=== PATIENT | female | born 1930 | race Caucasian/White ===

== ENCOUNTER 2017-12-19 02:58 | Inpatient (IN) | payer OTHER, MEDICARE ==
[~2017-12-19] VITALS: Ht 162.6 cm; Wt 54.4 kg
[~2017-12-19 02:58] MED LIST: AMIODARONE HCL100 M1 PO; CENTRUM SILVER1 EAC3 PO; CEPHALEXIN500 M3 PO; COREG3.125 MG PO; GABAPENTIN100 M2 PO; IMODIUM A-D2 M2 PO; LISINOPRIL20 M1 PO; MYRBETRIQ25 M1 PO; PROBIOTIC1 EACH PO; VITAMIN B-122500 MCG PO; ZENPEP DR 25,01 EACH PO
[2017-12-19] MEDS ORDERED: LEVOTHYROXINE50 MCG PO (08:08)
--- NOTE | 2017-12-19 10:27 | Patient Discharge Instructions ---
Discharge Instructions General Discharge Information You were seen/treated for: Primary right hip osteoarthritis You had these procedures: Right total hip arthroplasty Watch for these problems: Increasing pain despite the use of pain medication Increasing redness, warmth or swelling Drainage of any type from incision Inability to bear weight on operative leg Persistent nausea and vomiting Fever greater than 101.5 degrees No bath, but you may shower: Yes Other wound care: Please keep wound clean and dry. No ointments or lotions of any type on or near incision at any time. No exceptions. Your dressing will be changed by your nurse on the second day after your surgery. Daily dry dressing changes are recommended each day thereafter. Do not soak your wound in a bath at any time until otherwise indicated by your surgeon. You may shower, please dry wound immediately after shower with a clean towel Special Instructions: Aspirin: You are taking this medication to help prevent blood clot formation. Please take with food to protect your stomach lining. Please take as directed. Constipation: Pain medication can cause constipation. Dr. Covarrubias has recommended that you take Colace and miralax each day. You may discontinue this medication if you develop loose stool or diarrhea. If you wish to continue this medication, it is available over the counter. If you are unable to move your bowels after several days, if you are unable to pass gas and are developing bloating, nausea, or vomiting as a result, please contact your doctor. Diet Continue normal diet: Yes Activity Full Activity/No Limits: No Activity Self Limited: Yes Acute Coronary Syndrome Inclusion Criteria At DC or during hospital stay patient has or had the following: ACS DIAGNOSIS No Discharge Core Measures Meds if any: Prescribed or Continued at Discharge Meds if any: NOT Prescribed or Continued at Discharge Congestive Heart Failure Inclusion Criteria At DC or during hospital stay patient has or had the following: CHF DIAGNOSIS No Discharge Core Measures Meds if any: Prescribed or Continued at Discharge Meds if any: NOT Prescribed or Continued at Discharge Cerebrovascular accident Inclusion Criteria At DC or during hospital stay patient has or had the following: CVA/TIA Diagnosis No Discharge Core Measures Meds if any: Prescribed or Continued at Discharge Meds if any: NOT Prescribed or Continued at Discharge Venous thromboembolism Inclusion Criteria VTE Diagnosis No VTE Type NONE VTE Confirmed by (Test) NONE Discharge Core Measures - Per Current guidelines, there needs to be overlap - treatment for the first 5 days of Warfarin therapy. - If discharged on Warfarin prior to 5 days of - overlap therapy, the patient will need to be - assessed for post discharge needs including - *Post discharge parental anticoagulation - *Warfarin and/or parental anticoagulation education - *Follow up date to check INR post discharge At least 5 days overlap therapy as Inpatient No Meds if any: Prescribed or Continued at Discharge Note: Overlap Therapy is Warfarin and Anticoagulant Meds if any: NOT Prescribed or Continued at Discharge
--- NOTE | 2017-12-19 10:29 | Admission Core Measures ---
Acute Coronary Syndrome (CM) ACS Core Measures Acute Coronary Syndrome Diagnosis No Congestive Heart Failure (NEW) CHF Core Measures Congestive Heart Failure Diagnosis No Cerebrovascular Accident (NEW) CVA Core Measures CVA/TIA Diagnosis No Venous Thromboembolism VTE Core Laisha (View Protocol) VTE Risk Factors Surgery No Mechanical VTE Prophylaxis d/t N/A MechProphylax Ordered No VTE Pharm Prophylaxis d/t NA PharmProphylax ordered Problem List As ranked by this Provider includes Assessment & Plan 1. S/P total hip arthroplasty HOME MEDS Home Med List Amiodarone HCl 100 MG TABLET 1 TAB PO DAILY HEART (Reported) Amiodarone HCl 100 MG TABLET 0.5 TAB PO PRN HEART (Reported) Carvedilol (Coreg) 3.125 MG TABLET 1 TAB PO DAILY HEART/BP (Reported) Cyanocobalamin (Vitamin B-12) (Vitamin B-12) 2,500 MCG TAB.SUBL 1 TAB PO DAILY SUPPLEMENT (Reported) Gabapentin 100 MG CAPSULE 1 CAP PO DAILY NERVE PAIN (Reported) Lactobacillus Acidophilus (Probiotic) (Unknown Strength) CAPSULE (Unknown Dose ) PO DAILY PROBIOTIC (Reported) Levothyroxine Sodium 50 MCG TABLET 1 TAB PO DAILY hypothyroidism (Reported) Lisinopril 20 MG TABLET 1 TAB PO DAILY BP (Reported) Loperamide HCl (Imodium A-D) 2 MG CAPSULE 1 CAP PO PRN GI (Reported) Mirabegron (Myrbetriq) 25 MG TAB.ER.24H 1 TAB PO DAILY BLADDER (Reported) Multivit-Min/FA/Lycopen/Lutein (Centrum Silver Tablet) 0.4 MG-300 MCG-250 MCG TABLET 1 TAB PO DAILY SUPPLEMENT (Reported)
--- NOTE | 2017-12-19 10:31 | Surg Short-stay <48hrs Dis Sum ---
Visit Information Visit Dates Admission Date: 12/19/17 Discharge Date: 12/20/17 Surgical Short Stay DC Summary Admission Diagnosis: Primary right hip osteoarthritis Final Diagnosis: Primary right hip osteoarthritis Procedure(s): Right total hip arthroplasty Summary/Significant Findings: Patient was admitted to the hospital for an elective total joint replacement. The procedure was tolerated well and patient was transferred to a general surgical floor. Diet was advanced and tolerated. The patient was evaluated and treated by physical therapy. At the time of hospital discharge, the vital signs were stable, neurovascular status was intact, and pain was controlled with the use of oral pain medications. Condition at Discharge: Stable Discharge Disposition: home health services Discharge instructions provided to patient/family: Yes Post discharge follow-up plan: Follow up with Dr. Covarrubias in 6 weeks from date of surgery. Please call office to arrange &/or confirm this appointment
--- NOTE | 2017-12-19 11:51 | RADIOLOGY REPORT ---
EXAMINATION: XR HIP, RIGHT CLINICAL INFORMATION: Status post right hip arthroplasty. COMPARISON: None TECHNIQUE: AP and frog-leg lateral views of the right hip. FINDINGS: Prosthetic components of the right total hip arthroplasty are appropriately aligned. No periprosthetic fracture. Gas from recent surgery is present in the surrounding soft tissues. IMPRESSION: Normal postoperative appearance of the right total hip prosthesis.
--- NOTE | 2017-12-19 12:05 | Operative Report ---
Operative/Inv Procedure Report Surgery Date: 12/19/17 Name of Procedure: Right total hip replacement Pre-Operative Diagnosis: Primary right hip DJD Post-Operative Diagnosis: Same Estimated Blood Loss: 250 Surgeon/Nurse Midwife/Clinical Instructor: Marci WARD,Randy Carcamo Anesthesia: block Operative/Procedure Note Note: Description of Procedure: The patient was taken to the operating room and positively identified. After induction of spinal anesthesia and administration of appropriate pre-operative antibiotics, the patient was positioned supine on the operating room table and all bony prominences were well padded. After performing a surgical timeout, the right lower extremity was prepped and draped in the usual sterile fashion. A direct anterior approach was made to the right hip. The incision was carried sharply through superficial soft tissues to the level of the fascia. Meticulous hemostasis was maintained with Bovie electocautery. The fascia over the tensor fascia john muscle was opened sharply and the interval between the TFL and the sartorius was entered bluntly taking care to stay lateral to the lateral femoral cutaneous nerve. Retractors were placed around the femoral neck and the pericapsular fat was identified. The ascending branches of the lateral femoral circumflex vessels were identified and carefully coagulated. The pericapsular fat and anterior capsule were then resected. A napkin ring osteotomy was performed and the femoral head was removed without difficulty. Attention was then turned to the acetabulum. After appropriate placement of retractors, the acetabulum was exposed. Soft tissue was cleaned from the acetabular margin and notch. Overhanging osteophytes were removed and the teardrop was exposed. The acetabulum was then sequentially reamed to accept a 54 mm Mirella Tritanium hemispherical solid shell. This was impacted into place in the appropriate position and fitted with a 36 mm Trident X3 zero degree polyethylene insert. Attention was then turned to the femur. After performing the appropriate ligament releases, the proximal femur was exposed. It was then sequentially broached to accept a size 6 Mirella Accolade 2 stem. This was trialed for leg length and stability. The trial component was removed and the final component was impacted into place. The trunnion was carefully cleaned and fit with a 36 mm, +2.5 Biolox delta ceramic femoral head. The hip was reduced and put through a full range of motion and found to be stable. The articular space was then irrigated with sterile saline. The periarticular soft tissues were infilitrated with Marcaine. The fascial layer was closed with interrupted #1 vicryl suture and the skin was re-approximated with interrupted 2 -0 vicryl. The skin was closed with a running 3-0 V-Lock suture. Steri-strips and a sterile dressing were applied. The patient was awakened and taken to the recovery room in satisfactory condition.
[2017-12-19 13:13] VITALS: BP 156/80
--- NOTE | 2017-12-19 13:47 | PN- Orthopedic ---
Subjective Subjective: poc s/p hip arthroplasty mariana cp sob, no n+v with diet resting comfortably sitting up in bed Objective Vital Signs and I&Os Vital Signs Date Time Temp Pulse Resp B/P B/P Pulse O2 O2 Flow FiO2 Mean Ox Delivery Rate 12/19 1313 97.6 65 16 156/80 95 Room Air Intake & Output 12/19 1600 12/19 0800 12/19 0000 12/18 1600 12/18 0800 12/18 0000 Intake Total Output Total Balance Patient 123 lb 129 lb Weight Weight Reported by Patient Measurement Method Physical Exam: cv: rrr lungs: clear abd: soft, +bs ext: drsg dry, thigh soft distal cms bilat Assessment/Plan Assessment/Plan ortho stable plan oob with pt asa for dvt prophylaxis advance diet home d/c planning Core Measures Venous Thromboembolism VTE Risk Factors Surgery No Mechanical VTE Prophylaxis d/t N/A MechProphylax Ordered No VTE Pharm Prophylaxis d/t NA PharmProphylax ordered
[2017-12-19 16:00] VITALS: BP 154/78
[2017-12-19] MEDS ORDERED: MIRALAX17 G1 PO (16:53)
[2017-12-19] MEDS ORDERED: PROTONIX20 M1 PO (16:53)
[2017-12-19] MEDS ORDERED: COLACE100 M1 PO (16:53)
[2017-12-19] MEDS ORDERED: DILAUDID2 M1 PO (16:53)
[2017-12-19] MEDS ORDERED: ASPIRIN EC81 M1 PO (16:53)
[2017-12-19 18:00] VITALS: BP 170/76
[2017-12-19 20:00] VITALS: BP 190/84
[2017-12-20 00:05] VITALS: BP 184/78
[2017-12-20 04:00] VITALS: BP 129/70
[2017-12-20 08:06] VITALS: BP 129/70
--- NOTE | 2017-12-20 08:11 | PN- Orthopedic ---
Subjective Subjective: Minimal pain, no complaints, no acute events overnight, would like to be discharged home today Objective Vital Signs and I&Os Vital Signs Date Time Temp Pulse Resp B/P B/P Pulse O2 O2 Flow FiO2 Mean Ox Delivery Rate 12/20 0400 97.6 68 20 129/70 95 Room Air 12/20 0005 97.9 67 20 184/78 96 Room Air 12/19 2327 182/80 12/19 2000 98.4 64 20 190/84 97 Room Air 12/19 1800 97.6 61 20 170/76 96 Room Air 12/19 1600 97.6 54 20 154/78 97 Room Air 12/19 1313 97.6 65 16 156/80 95 Room Air Intake & Output 12/20 1600 12/20 0800 12/20 0000 12/19 1600 12/19 0800 12/19 0000 Intake Total 1000 Output Total 100 500 Balance -100 500 Intake, IV 400 Intake, Oral 600 Output, 100 Emesis Output, Urine 500 Patient 120 lb 123 lb Weight Weight Reported by Patient Measurement Method Physical Exam: Well-developed well-nourished no apparent distress. HEENT: Atraumatic, extraocular motion intact Neck: Supple, no lymphadenopathy Respiratory: No respiratory distress Extremities: No edema RIGHT lower extremity hip dressing in place, Dressing clean dry and intact Mild thigh swelling No signs of infection. No shortening or rotation Hip range of motion is limited and without unexpected pain Neurovascularly intact distally Bilateral calves are supple, nontender. Neuro: Alert and oriented x3 Psych: Mood affect normal, normal memory normal judgment. Skin: Warm and dry, no rash on exposed skin Results Last 48 Hours of Labs: Laboratory Tests 12/20 07 Chemistry Sodium Pending Potassium Pending Chloride Pending Carbon Dioxide Pending Anion Gap Pending BUN Pending Creatinine Pending BUN/Creatinine Ratio Pending Hematology CBC w Diff Pending WBC Pending RBC Pending Hgb Pending Hct Pending MCV Pending MCH Pending MCHC Pending RDW Pending Plt Count Pending MPV Pending Assessment/Plan Assessment/Plan Postop day #1 status post right total hip arthroplasty anterior approach. Perioperative antibiotics. Pain medication as needed. Out of bed Physical therapy, weightbearing as tolerated DC IV fluids Regular diet Follow a.m. labs Aspirin for DVT prophylaxis ALPS for DVT prophylaxis Regular home meds Dressing change postop day 2 Discharge home today with [facility] services if labs acceptable and clears physical therapy Core Measures Venous Thromboembolism VTE Risk Factors Surgery No Mechanical VTE Prophylaxis d/t N/A MechProphylax Ordered No VTE Pharm Prophylaxis d/t NA PharmProphylax ordered
[2017-12-20 08:28] LABS: ABSOLUTE BASOPHIL COUNT 0 /CUMM (0.0-0.2); ABSOLUTE EOSINOPHIL COUNT 0 /CUMM (0.0-0.7); ABSOLUTE GRANULOCYTE CT 8.3 /CUMM (1.4-6.5); ABSOLUTE LYMPH COUNT 0.9 /CUMM (1.2-3.4); ABSOLUTE MONOCYTE COUNT 1.1 /CUMM (0.10-0.60); BASOPHIL % 0.2 % (0.0-2.0); EOSINOPHIL % 0 % (0-5); GRANULOCYTE % 80.6 % (42.2-75.2); HEMATOCRIT 39.6 % (37-47); MEAN CORPUSCULAR HGB 32.1 PG (27.0-31.0); MEAN CORPUSCULAR HGB CONC 33.6 G/DL (33.0-37.0); MEAN CORPUSCULAR VOLUME 95.5 FL (81.0-99.0); MEAN PLATELET VOLUME 10.1 FL (7.4-10.4); PLATELET COUNT 193 /CUMM (130-400); RED BLOOD CELL CT 4.15 /CUMM (4.20-5.40); WHITE BLOOD CELL COUNT 10.3 /CUMM (4.8-10.8)
== END 2017-12-20 13:30 | disposition home health service (06) | DRG 470 ==
LOC: SDA 02:58 → ENRESERV 10:48 → ENTRNSPT 11:48 → EDTRNSPT 12:41 → EDTRNSPTSTS 12:41 → 2NB 12:47 → CMPTRNSPT 13:02 → ENPENDDIS 12-20 08:50 → 2NB 12-20 13:30
PROVIDERS: Physician Assistant
PROC: 0SR904A Replacement of Right Hip Joint with Ceramic on Polyethylene Synthetic Substitute, Uncemented, Open Approach (ICD-10-PCS; principal; 2017-12-19)
DX: M16.11 Unilateral primary osteoarthritis, right hip (principal); Z88.0 Allergy status to penicillin; Z91.041 Radiographic dye allergy status; I10 Essential (primary) hypertension; E78.5 Hyperlipidemia, unspecified; G62.9 Polyneuropathy, unspecified; Z96.653 Presence of artificial knee joint, bilateral; Z98.1 Arthrodesis status; Z90.49 Acquired absence of other specified parts of digestive tract
CPT/HCPCS: 2NSBP; 36592; 73502-RT; 82436; 97110-GO; 97116-GO; 97161-GP; J0131; J0690; J0735; J1100; J2405; J2765; J3490; J7042